=== PATIENT | female | born 1980 | race Caucasian/White ===

== ENCOUNTER → 2016-09-03 | Outpatient (CLI) | payer BC | LOC: MOB LAB 10:04 | PROVIDERS: ATTEND Student in an Organized Health Care Education/Training Program | DX: O20.0 Threatened abortion (principal); Z32.01 Encounter for pregnancy test, result positive | CPT/HCPCS: 36415; 84702; 86900; 86901 ==

== ENCOUNTER → 2016-09-05 | Outpatient (CLI) | payer BC | LOC: LAB 17:14 | PROVIDERS: ATTEND Student in an Organized Health Care Education/Training Program | DX: O20.0 Threatened abortion (principal) | CPT/HCPCS: 36415; 84702 ==

== ENCOUNTER → 2016-09-14 | Outpatient (CLI) | payer BC ==
[2016-09-14 16:27] LABS: HEMOGLOBIN 13.8 g/dL (12.0-16.0); MEAN CORPUSCULAR HEMOGLOBIN 31.9 PG (27-31); MEAN CORPUSCULAR HGB CONC 32.9 g/dL (33-37); MEAN PLATELET VOLUME 8.6 FL (7.4-12.2); RDW COEFFICIENT OF VARIATION 13.5 % (11.5-14.5); RED BLOOD COUNT 4.33 10^6/uL (4.20-5.40); WHITE BLOOD COUNT 8.93 10^3/uL (4.8-10.8)
== END ==
LOC: LAB 16:07
PROVIDERS: ATTEND Student in an Organized Health Care Education/Training Program
DX: O03.9 Complete or unspecified spontaneous abortion without complication (principal); R10.31 Right lower quadrant pain
CPT/HCPCS: 36415; 84702; 85027; 86140

== ENCOUNTER → 2016-10-09 | Outpatient (CLI) | payer BC ==
[2016-10-09 10:11] LABS: HEMATOCRIT 43.8 % (37.0-47.0); HEMOGLOBIN 14.4 g/dL (12.0-16.0); MEAN CORPUSCULAR HEMOGLOBIN 31.4 PG (27-31); MEAN CORPUSCULAR HGB CONC 32.9 g/dL (33-37); MEAN PLATELET VOLUME 9.3 FL (7.4-12.2); RDW COEFFICIENT OF VARIATION 13.5 % (11.5-14.5); RED BLOOD COUNT 4.59 10^6/uL (4.20-5.40); WHITE BLOOD COUNT 6.24 10^3/uL (4.8-10.8)
[2016-10-09 12:37] LABS: BILIRUBIN,URINE NEGATIVE (NEG); CLARITY,URINE CLEAR (CLEAR); GLUCOSE, URINE (UA) NEGATIVE (NEG); LEUKOCYTE ESTERASE ,URINE NEGATIVE (NEG); NITRATE,URINE NEGATIVE (NEG); OCCULT BLOOD,URINE Trace-intact (NEG); PH,URINE 8.5 (5.0-8.5); PROTEIN,URINE NEGATIVE (NEG); UROBILINOGEN,URINE 0.2 mg/dL (0.2)
[2016-10-09 12:41] LABS: URINE SAMPLE TYPE VOIDED SPECIMEN
[2016-10-09 12:42] LABS: BACTERIA,URINE MANY; RBC,URINE 0-1 /hpf; SQUAMOUS EPITHELIAL CELL,UR MANY; WBC,URINE 0-1
--- NOTE | 2016-10-09 13:33 | DI ---
PELVIC ULTRASOUND, 10/09/2016 9:51 AM Clinical History: Right lower quadrant pelvic pain. Previous Exam: None at this facility. Technique: Transabdominal and transvaginal scans are performed. The uterus measures 40 x 50 x 80 mm. The central uterine stripe measures 5 mm. The uterus itself has a normal appearance. The ovaries are normal and demonstrate vascular flow. There is fluid in the cul- de-sac and this is more than typically associated with physiologic amounts. Scans through the right l ower quadrant show no free fluid collection. The appendix is not identified in this area. Readin. There is free fluid in the cul-de-sac and this is more than a physiologic amount. 2. The remainder of the examination is normal. 3. No discrete abnormality is seen in the right lower quadrant. The appendix was not identified.
== END ==
LOC: MOB LAB 09:30
PROVIDERS: ATTEND Student in an Organized Health Care Education/Training Program
DX: R10.2 Pelvic and perineal pain (principal); R10.31 Right lower quadrant pain
CPT/HCPCS: 36415; 76830; 76856; 81001; 84702; 85027

== ENCOUNTER → 2017-02-08 | Outpatient (CLI) | payer BC ==
--- NOTE | 2017-02-09 18:26 | DI ---
CT ABDOMEN SCAN WITH IV CONTRAST, 02/08/2017 9:25 AM : Clinical History: Abdominal pain. Previous Exam: 06/08/2011. Scans are performed from the lower lung bases through the liver and kidneys with IV contrast. 75 ml o f Isovue 300 was injected IV. No oral or rectal contrast was ordered. The lung bases are clear. The liver is normal. The gallbladder is grossly normal. There is no abnorma lity of the spleen, pancreas, and adrenal glands. Both kidneys are normal in size, shape, position an d contour. There is no hydronephrosis or hydroureter. No renal or ureteral calculi are present. There are no abnormal retrocrural or periaortic nodes. No ascites is present. READING: Normal CT abdomen scan. CT PELVIS SCAN WITH IV CONTRAST, 02/08/2017 9:25 AM: Clinical History: See above. Previous Exam: 06/08/2011. Scans are performed from just superior to the umbilicus to the symphysis pubis with IV contrast. This is the same bolus of contrast used for the CT scans of the abdomen. Scans through the lower abdomen and pelvis show no masses or abnormal fluid collections. There is no adenopathy. The appendix is normal. The small bowel, terminal ileum, and ileocecal valve are normal. The colon is also normal. There is a very small umbilical hernia through which only mesenteric fat cortes s herniated. The uterus and both ovaries are normal. READING: Normal CT scan of the pelvis.
== END ==
LOC: CT 08:36
PROVIDERS: ATTEND Nurse Practitioner Family
DX: R10.84 Generalized abdominal pain (principal); R10.33 Periumbilical pain; Z32.02 Encounter for pregnancy test, result negative
CPT/HCPCS: 36415; 74177; 84703

== ENCOUNTER → 2017-03-11 | Outpatient (CLI) | payer BC ==
[2017-03-11 17:08] LABS: BASOPHILS # (AUTO) 0.19 10*3/UL; BASOPHILS % (AUTO) 1.9 % (0-1); EOSINOPHILS # (AUTO) 0.24 10*3/UL; EOSINOPHILS % (AUTO) 2.4 % (0-8); HEMATOCRIT 40.6 % (37.0-47.0); HEMOGLOBIN 13.6 g/dL (12.0-16.0); LYMPHOCYTES # (AUTO) 3.12 10*3/uL; MEAN CORPUSCULAR HEMOGLOBIN 31.9 PG (27-31); MEAN CORPUSCULAR HGB CONC 33.5 g/dL (33-37); MEAN CORPUSCULAR VOLUME 95.1 FL (81-99); MEAN PLATELET VOLUME 9.4 FL (7.4-12.2); MONOCYTES # (AUTO) 0.85 10*3/UL (0.3-0.8); MONOCYTES % (AUTO) 8.6 % (5-15); NEUTROPHILS # (AUTO) 5.49 10*3/UL; NEUTROPHILS % (AUTO) 55.3 % (50-80); RED BLOOD COUNT 4.27 10^6/uL (4.20-5.40)
[2017-03-11 17:10] LABS: PLATELET MORPHOLOGY COMMENT NORMAL MORPHOLOGY (NORM); RBC MORPHOLOGY COMMENT NORMAL MORPHOLOGY (NORM); WBC MORPHOLOGY COMMENT NORMAL MORPHOLOGY (NORM)
[2017-03-11 17:38] LABS: HIV ANTIBODY NEGATIVE (N); HIV-1 P24 ANTIGEN NEGATIVE (N)
[2017-03-11 18:26] LABS: FREE T4 (FREE THYROXINE) 0.74 ng/dL (0.93-1.71)
== END ==
LOC: MOB LAB 14:56
PROVIDERS: ATTEND Student in an Organized Health Care Education/Training Program
DX: O30.001 Twin pregnancy, unspecified number of placenta and unspecified number of amniotic sacs, first trimester (principal); Z36 Encounter for antenatal screening of mother; O09.511 Supervision of elderly primigravida, first trimester
CPT/HCPCS: 36415; 80081; 84439; 84443; 86900; 86901; 87077; 87088; 87186

== ENCOUNTER → 2017-03-18 | Outpatient (CLI) | payer BC ==
--- NOTE | 2017-03-19 10:38 | DI ---
History: Twin gestation in first trimester. Gestational age by last menstrual period is 9 weeks 2 day s Comparison: None Findings: There is a 20, intrauterine gestation. There is a thickened membrane between the 2 amniotic sacs indicating a diamniotic dichorionic pregnan cy. Twin A: Emory-rump length indicates gestational age of 7 weeks 2 days. Heart rate is detected at 172 beats pe r minute. Yolk sac cannot definitely be identified Subjectively, amniotic fluid volume is normal. Twin B: Emory-rump length indicates a gestational age of 7 weeks 2 days. Yolk sac is identified. Subjectively, amniotic fluid volume is normal. Impression Diamniotic, dichorionic intrauterine gestation . Gestational age for both twin A and twin B is 7 weeks 2 days by crown-rump length. REGGIE is November 02, 2017
--- NOTE | 2017-03-19 10:58 | DI ---
History: Early stage of . Gestational age by last menstrual. 8 weeks 2 days Comparison: None Findings: There is a single intrauterine fluid-filled cavity. I do not been provided with beta hCG levels, but there appears to be surrounding decidual reaction, and this is assumed to represent the gestational s ac. The gestational sac is "hourglass" in configuration: Gestational age by sac size is 6 weeks 2 days. Neither pole nor yolk sac is visualized. IVC and the right nor left echogenic or cystic adnexal lesions. There is no free fluid Impression: Intrauterine gestational sac without visualization of a pole or yolk sac. By sac size, gestatio nal age should be 6 weeks 2 days. This could represent a blighted ovum, ectopic , or early i ntrauterine . Reimaging in 2 weeks is recommended for reevaluation.
== END ==
LOC: US 12:46
PROVIDERS: ATTEND Student in an Organized Health Care Education/Training Program
DX: O30.001 Twin pregnancy, unspecified number of placenta and unspecified number of amniotic sacs, first trimester (principal); O09.511 Supervision of elderly primigravida, first trimester
CPT/HCPCS: 76801; 76802

== ENCOUNTER 2017-10-22 09:07 | Inpatient (IN) ==
[2017-10-22] MEDS ORDERED: NORMAL SALINE 10 ML SYRINGE FLUSH IVP PRN ×3 (09:12→14:36)
[2017-10-22 10:01] LABS: BILIRUBIN,URINE NEGATIVE (NEG); COLOR,URINE YELLOW (Y); GLUCOSE, URINE (UA) NEGATIVE (NEG); OCCULT BLOOD,URINE SMALL (NEG); PROTEIN,URINE NEGATIVE (NEG); UROBILINOGEN,URINE 0.2 EU/dL (0.2)
[2017-10-22 10:09] LABS: CLARITY,URINE SLIGHTLY CLOUDY (CLEAR)
[2017-10-22 10:10] LABS: BACTERIA,URINE MANY; URINE SAMPLE TYPE CLEAN CATCH URINE
[2017-10-22] MEDS ORDERED: Lactated Ringers 1,000 ML PRIMARY IV ONE (10:11)
[2017-10-22] MEDS ORDERED: Nalbuphine Inj 20 MG/ML Ampule IVP PRN ×2 (11:08→15:53)
[2017-10-22] MEDS ORDERED: METHYLERGONOVINE MALEATE 0.2 MG/1 ML VIAL IM PRN (11:08)
[2017-10-22] MEDS ORDERED: Metoclopramide Inj 10 MG/2 ML VIAL IV PRN (11:08)
[2017-10-22] MEDS ORDERED: NALOXONE 0.4 MG/1 ML VIAL IVP PRN (11:08)
[2017-10-22] MEDS ORDERED: Lidocaine 1% 10 MG/ML - 20 ML VIAL SUBCUT PRN (11:08)
[2017-10-22] MEDS ORDERED: CITRIC ACID/SODIUM CITRATE 30 ML CUP PO PRN (11:08)
[2017-10-22] MEDS ORDERED: CefOXitin Inj 2 GM in Sodium Chloride 0.9% 100 ML IV PRN (11:08)
[2017-10-22] MEDS ORDERED: MISOPROSTOL 200 MCG TABLET RECTAL PRN (11:08)
[2017-10-22] MEDS ORDERED: LIDOCAINE HCL 2 % 10 ML JELLY URO-JECT TOPICAL PRN (11:08)
[2017-10-22] MEDS ORDERED: Famotidine Inj 20 MG in Normal Saline Flush 10 ML IVP PRN ×5 (11:08→15:53)
[2017-10-22] MEDS ORDERED: Naloxone Inj 0.01 MG in Normal Saline Flush 1 ML IVP PRN (11:08)
[2017-10-22] MEDS ORDERED: BUTORPHANOL TARTRATE 2 MG/1 ML VIAL IVP PRN (11:08)
[2017-10-22] MEDS ORDERED: ONDANSETRON 4 MG/2 ML VIAL IVP PRN ×3 (11:08→15:53)
[2017-10-22] MEDS ORDERED: ePHEDrine Inj 5 MG in Normal Saline Flush 1 ML IVP PRN (11:08)
[2017-10-22] MEDS ORDERED: diphenhydrAMINE 50 MG/1 ML VIAL IVP PRN (11:08)
[2017-10-22] MEDS ORDERED: Phenylephrine Inj 50 MCG in Normal Saline Flush 0.5 ML IVP PRN (11:08)
[2017-10-22] MEDS ORDERED: CALCIUM CARBONATE 500 MG (TUMS) CHEWABLE TABLET PO PRN ×2 (11:08→15:53)
[2017-10-22] MEDS ORDERED: OXYTOCIN 10 UNIT/1 ML IM PRN (11:08)
[2017-10-22] MEDS ORDERED: LIDOCAINE W/ SODIUM BICARB 0.5 ML SYR SUBD PRN ×2 (11:08→14:36)
[2017-10-22] MEDS ORDERED: Carboprost Inj 250 MCG/ML AMP IM PRN (11:08)
[2017-10-22] MEDS ORDERED: TERBUTALINE SULFATE 1 MG/1 ML SDV SUBCUT PRN (11:08)
[2017-10-22] MEDS ORDERED: fentaNYL Inj 100 MCG/2 ML VIAL IV PRN (11:08)
[2017-10-22] MEDS ORDERED: Oxytocin 20 Units + LR 20 UNIT/1,000 ML BAG IV SCH ×2 (11:15→15:53)
[2017-10-22] MEDS ORDERED: Lactated Ringers-OB Dept 1,000 ML PRIMARY IV SCH (11:15)
[2017-10-22] MEDS ORDERED: cefTRIAXone Inj 1 GM in Sodium Chloride 0.9% 100 ML IV SCH (11:15)
--- NOTE | 2017-10-22 11:21 | DI ---
US OB , Limited,10/22/2017 9:13 AM: Clinical History: position Previous Exam: June 20, 2017 Findings: Multiple grayscale and color Doppler sonographic images are obtained through the pelvis, and demonstr ate a single live intrauterine gestation in breech presentation. Amniotic fluid level is at the lower level of normal (5.6 cm). There is normal motion of the limbs an d detected Doppler heart tones of 138 beats per minute. Estimated gestational age was determined by a composite of biparietal diameter, head circumference, a bdominal circumference and femur length yielding an estimated gestational age by ultrasound of 38 wee ks 5 days. Estimated weight is 3567 g (72nd percentile). Impression: A single live intrauterine gestation in breech presentation. Amniotic fluid index at the lower level of normal.
[2017-10-22 11:37] LABS: Hematocrit [HCT] 40.3 % (37.0-47.0); Hemoglobin [HGB] 13.3 g/dL (12.0-16.0); MEAN CORPUSCULAR HEMOGLOBIN 31.3 PG (27-31); MEAN CORPUSCULAR VOLUME 94.8 FL (81-99); MEAN PLATELET VOLUME 9.2 FL (7.4-12.2); RED BLOOD COUNT 4.25 10^6/uL (4.20-5.40)
[2017-10-22] MEDS ORDERED: Sodium Chloride 0.9% 1,000 ML PRIMARY IV SCH (12:15)
[2017-10-22] MEDS ORDERED: FAMOTIDINE 20 MG/2 ML VIAL IVP ONE (12:58)
[2017-10-22] MEDS ORDERED: MORPHINE SULFATE/PF 10 MG/10 ML AMPULE ONE (13:00)
[2017-10-22] MEDS ORDERED: fentaNYL Inj 100 MCG/2 ML VIAL ONE (13:03)
[2017-10-22] MEDS ORDERED: ePHEDrine Inj 50 MG/ML AMP ONE (13:10)
[2017-10-22] MEDS ORDERED: Sodium Chloride 0.9% vial 10 ML ONE (13:11)
[2017-10-22] MEDS ORDERED: CefOXitin Inj 2 GM in Sodium Chloride 0.9% 100 ML IV ONE (13:18)
[2017-10-22] MEDS ORDERED: Cefotaxime Inj 2 GM in Sodium Chloride 0.9% 100 ML IV SCH ×2 (13:30→18:00)
[2017-10-22] MEDS ORDERED: PHENYLEPHRINE 10,000 MCG/1 ML VIAL ONE (13:51)
--- NOTE | 2017-10-22 14:32 | CRNA.PROGR ---
Anesthesia Time - - Start date: 10/22/17 End date: 10/22/17 - Procedure/Recovery Time Anesthesia : Time In: 13:31 Anesthesia : Time Out: 15:13 Anesthesia : Total Time: 102 - Total Anesthesia Time Total Anesthesia Time (minutes): 102 - Other Weight: 96.218 kg Height: 5 ft 9 in Body Mass Index (BMI): 31.3 Physical Status: P2 () Anesthesia Type: Spinal Block Obstetrics: C/S anesthesia only (Breech)
--- NOTE | 2017-10-22 14:34 | CRNA.PROCE ---
Central Neuraxis Block Placevt - - Safety Measures: Time Out Taken, Site Verified - - Type of Block: Subarachnoid Reason for Block: Surgical Moniters Used During Block: SPO2, NIBP Sedation Used - Enter Amount Used in Comment Field: Fentanyl (mcg): Yes (50) Positioning: Sitting Skin Prep Used: ChloroPrep (Times 2) Draped: Yes Skin Infiltration - Enter Amount Used in Comment Field: 1% Xylocaine (mL): Yes ( 1.0) Introducer User: 23 Gauge (1 Pass, Clear CSF. No parasthesia.) Spinal Needle Used: 25 Chantale 80 mm Local Anesthetic - Enter Amount Used in Comment Field: 0.75 % Bupivacaine with Dextrose (ml): Yes (2 ml) Additive Used - Enter Amount Used in Comment Field: Preservative Free Morphine ( mg): Yes (0.15 PF MSO4) Anesthesia Time - Other Weight: 96.218 kg Height: 5 ft 9 in Body Mass Index (BMI): 31.3
--- NOTE | 2017-10-22 14:35 | CRNA.PROGR ---
Anesthesia Recovery Phase I - Post Anesthesia Evaluation Patient's Condition on Arrival in Phase I: Stable Patient's Condition on Arrival in Phase II: Stable Pain Level: 0
[2017-10-22] MEDS ORDERED: Ondansetron ODT Tab 8 MG TAB PO PRN (14:36)
[2017-10-22] MEDS ORDERED: ePHEDrine Inj 50 MG/ML AMP IVP PRN (14:36)
[2017-10-22] MEDS ORDERED: fentaNYL Inj 100 MCG/2 ML VIAL IVP PRN (14:36)
[2017-10-22] MEDS ORDERED: ATROPINE SULFATE 0.4 MG/1 ML VIAL IVP PRN (14:36)
[2017-10-22] MEDS ORDERED: Lactated Ringers 1,000 ML PRIMARY IV SCH (14:45)
[2017-10-22] MEDS ORDERED: Lactated Ringers 2,000 ML PRIMARY IV ONE (15:01)
--- NOTE | 2017-10-22 15:26 | OB.OP.NOTE ---
Operative Report - - Surgeon: Codey Chopra MD Geothermal Technician: Raymundo Pelayo MD Anesthesia Type: Regional Anesthesia Provider: Bree Crenshaw CRNA Surgery Date: 10/23/17 Preoperative Diagnosis: Labor, Breech presentation, borderline oligohydramnios, UTI Postoperative Diagnosis: Same as above. Terma AGA male infant. 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 Workup notable for +leuk esterase and nitrates on urine dip. Patient was given a dose of cefoxitin and fluids. She continued to contract regularly. U/s revealed persistent breech presentation and bordeline oligohydramnios with an NORMAN of 5.8 cm. Given low fluid level, I did not think attempting version at this time was a good idea. Decision was made to proceed with a primary LTCS. As it had been >1 hour since antibiotics, patient was given 2 gms of cefotaxime prior to incision. The patient was taken to the operating room where spinal anesthesia was found to be adequate. She was then prepared and draped in the normal sterile fashion in the dorsal supine position with a leftward tilt. A Pfannenstiel skin incision was then made with the scalpel and carried through to the underlying layer of fascia with Bovie. The fascia was incised in the midline and the incision extended laterally with the Bovie. The superior aspect of the fascial incision was then grasped with Peter clamps, elevated and the underlying rectus muscles dissected off bluntly. Attention was then turned to the inferior aspect of this incision which in a similar fashion was grasped with Peter clamps and the rectus muscles dissected off both bluntly and with the Bovie. The rectus muscle was then in the midline, and the peritoneum identified, tented up, and entered in blunt fashion. The peritoneal incision was then extended superiorly and inferiorly with good visualization of the bladder. The Jaydon retractor was then inserted and the vesicouterine peritoneum was identified, a bladder flap was created. The lower uterine segment incised in the transverse fashion with the scalpel. The uterine incision was then extended laterally blunt fashion. The infant's butt was delivered atraumatically, followed by the L leg and R leg. The L arm and then R arm were then delivered, followed by the head. The nose and mouth were suctioned with the bulb suction. The cord was clamped and cut after approx 30 seconds. The infant was handed off to the awaiting nurse. Cord gases and cord blood were sent for analysis. The placenta was then removed manually; the uterus exteriorized, and cleared of all clots and debris. The uterus was initially quite boggy, but firmed up with pitocin. The uterus was noted to be bicornuate without a septum. The uterine incision was repaired with 0 Vicryl in a running, locked fashion. A second layer of the same suture was used to obtain excellent hemostasis. The peritoneal cavity was then copiously irrigated with warm saline. The uterus was returned to the abdomen. The paracolic gutters were copiously irrigated with warm saline and a second look at the uterus incision continued to reveal excellent hemostasis. The peritoneum was closed with 2-0 Vicryl. The fascia reapproximated with 0 vicryl in a running fashion. The L corner did require a figure of 8 as the fascia did bleed with the initial stitch. The subcutaneous space was irrigated with copiously with warm saline and the closed first with 3- 0 Vicryl and then more superficially with 3-0 stratafix sutures. The skin was reapproximated with Steri-Strips and a Silverlon dressing applied. Fundal massage was completed with small clots in vaginal vault. The patient tolerated the procedure well. Sponge, lap, and needle counts were correct x2. As above Claforan was given preoperatively less than one hour prior to incision time. The patient was taken to the recovery room in stable condition.
[2017-10-22] MEDS ORDERED: Oxytocin 20 Units + LR 20 UNIT/1,000 ML BAG IV ONE (15:29)
[2017-10-22] MEDS ORDERED: diphenhydrAMINE 50 MG/1 ML VIAL IV PRN (15:53)
[2017-10-22] MEDS ORDERED: Naloxone Inj 0.01 MG, Sodium Chloride 0.9% vial 1 ML IVP PRN ×2 (15:53)
[2017-10-22] MEDS ORDERED: diphenhydrAMINE 25 MG CAPSULE PO PRN (15:53)
[2017-10-22] MEDS ORDERED: LANOLIN HPA 40 GM TUBE TOPICAL PRN (15:53)
[2017-10-22] MEDS: KETOROLAC 15 MG/1 ML VIAL IVP SCH ×2 (16:40→22:30)
[2017-10-22] MEDS: NORMAL SALINE 10 ML SYRINGE FLUSH IVP PRN (16:40)
[2017-10-22] MEDS: D5-LR 1,000 ML PRIMARY IV SCH (19:59)
[2017-10-22] MEDS: Cefotaxime Inj 2 GM in Sodium Chloride 0.9% 100 ML IV SCH (21:30)
[2017-10-23] MEDS: KETOROLAC 15 MG/1 ML VIAL IVP SCH ×3 (04:30→16:34)
[2017-10-23] MEDS: D5-LR 1,000 ML PRIMARY IV SCH (04:30)
[2017-10-23] MEDS: Cefotaxime Inj 2 GM in Sodium Chloride 0.9% 100 ML IV SCH (05:24)
[2017-10-23 05:33] LABS: MEAN CORPUSCULAR HEMOGLOBIN 30.8 PG (27-31); MEAN CORPUSCULAR HGB CONC 32.1 g/dL (33-37); MEAN CORPUSCULAR VOLUME 95.9 FL (81-99); MEAN PLATELET VOLUME 9.9 FL (7.4-12.2); RED BLOOD COUNT 2.92 10^6/uL (4.20-5.40)
[2017-10-23] MEDS: Senna/Docusate Tab 1 TAB TAB PO SCH ×2 (08:32→20:43)
[2017-10-23] MEDS: Prenatal Multivitamin Tab 1 TAB TAB PO SCH (08:32)
--- NOTE | 2017-10-23 09:17 | CRNA.PROGR ---
Anesthesia Note - Progress Notes Anesthesia Progress Note: Up in room with OB RN, Dr Chopra, and student nurse present. States she had a comfortable night. Little sleep due to leg pumps. Received Ketoralac for supplemental pain med. Denies a lot of puritis related to Duramorph. Says she has a "little" headache. Denies backache. No nausea. Laboratory Results 10/22/17 10/22/17 10/22/17 Range/Units 09:45 10:47 11:35 WBC 11.56 H (4.8-10.8) 10^3/uL RBC 4.25 (4.20-5.40) 10^6/uL Hgb 13.3 (12.0-16.0) g/dL Hct 40.3 (37.0-47.0) % MCV 94.8 (81-99) FL MCH 31.3 H (27-31) PG MCHC 33.0 (33-37) g/dL RDW Std Deviation 47.8 (39-50) fL RDW Coeff of Adelaida 14.2 (11.5-14.5) % Plt Count 288 (140-350) 10*3/uL MPV 9.2 (7.4-12.2) FL Ur Collection Type Clean catch urine Urine Color Yellow (Y) Urine Clarity Slightly cloudy A (CLEAR) Urine pH 7.0 (5.0-8.5) Ur Specific [place] 1.010 (1.005-1.030) Urine Protein Negative (NEG) mg/dl Urine Glucose (UA) Negative (NEG) mg/dL Urine Ketones Negative (NEG) Urine Occult Blood Small H (NEG) Urine Nitrate Positive A (NEG) Urine Bilirubin Negative (NEG) Urine Urobilinogen 0.2 (0.2) EU/dL Ur Leukocyte Esterase Trace (NEG) Urine RBC 1-3 (NONE) /hpf Urine WBC 1-3 (NONE) Ur Squamous Epith Cells None (NONE) Ur Renal Epithelial Cell None (NONE) Urine Crystals None Urine Bacteria Many H (NONE) Urine Casts None (NONE) Urine Mucus Rare (NONE) Urine Trichomonas None (NONE) Urine Yeast None (NONE) Ur Culture Indicated? Culture set [place] Other Info Negative (NEGATIVE) Blood Type Antibody Screen 10/22/17 10/23/17 Range/Units 11:35 04:34 WBC 11.18 H (4.8-10.8) 10^3/uL RBC 2.92 L (4.20-5.40) 10^6/uL Hgb 9.0 L (12.0-16.0) g/dL Hct 28.0 L (37.0-47.0) % MCV 95.9 (81-99) FL MCH 30.8 (27-31) PG MCHC 32.1 L (33-37) g/dL RDW Std Deviation 46.8 (39-50) fL RDW Coeff of Adelaida 14.0 (11.5-14.5) % Plt Count 232 (140-350) 10*3/uL MPV 9.9 (7.4-12.2) FL Ur Collection Type Urine Color (Y) Urine Clarity (CLEAR) Urine pH (5.0-8.5) Ur Specific [place] (1.005-1.030) Urine Protein (NEG) mg/dl Urine Glucose (UA) (NEG) mg/dL Urine Ketones (NEG) Urine Occult Blood (NEG) Urine Nitrate (NEG) Urine Bilirubin (NEG) Urine Urobilinogen (0.2) EU/dL Ur Leukocyte Esterase (NEG) Urine RBC (NONE) /hpf Urine WBC (NONE) Ur Squamous Epith Cells (NONE) Ur Renal Epithelial Cell (NONE) Urine Crystals Urine Bacteria (NONE) Urine Casts (NONE) Urine Mucus (NONE) Urine Trichomonas (NONE) Urine Yeast (NONE) Ur Culture Indicated? [place] Other Info (NEGATIVE) Blood Type O POSITIVE Antibody Screen Negative Intake and Output (24hr x 4 totals) 10/21/17 10/22/17 10/23/17 10/24/17 05:59 05:59 05:59 05:59 Intake Total 7103 / 7103 100 / 100 Output Total 2150 / 2150 Balance 4953 / 4953 100 / 100 Vital Signs - Last Taken Temperature 98.1 F 10/23/17 05:00 Pulse Rate 69 10/23/17 05:00 Respiratory Rate 18 10/23/17 05:00 Blood Pressure 104/62 10/23/17 05:00 Pulse Ox 99 10/23/17 05:40 No apparent anesthetic difficulties.
[2017-10-23] MEDS: oxyCODONE-ACETAMINOPHEN 5-325 TAB PO PRN ×4 (09:29→20:42)
--- NOTE | 2017-10-23 09:39 | OB.PROGRES ---
Subjective Post Op Day: 1 Pain Management: PO Barreto Catheter: No Flatus: Yes Diet: Regular Feeding Method: Exculsively Ambulating: Yes Concerns / Additional Information: Anxious about taking narcotic pain medications. Did not sleep well 2/2 SCDs. Objective - General General Appearance: POSITIVE: No Acute Distress, Cooperative - Cardiovacular Cardiovascular Exam: POSITIVE: RRR Edema: +1 Pedal Edema Extremities: Negative Darius's - Bilaterally - Respiratory Respiratory Exam: POSITIVE: Clear to Auscultation - Bilaterally, Breathing Non Labored - Abdomen Bowel Sounds: Present Abdominal Wound Assessment: Silverlone Dressing - Fundus/Lochia/Perineum Uterus Consistency: Firm Uterus Position: POSITIVE: At Umbilicus Lochia Color: Rubra/Red Assesstment / Plan (1) delivery delivered Current Visit: Yes Status: Acute Support Text: 37 yo , POD 1 s/p primary LTCS for breech presentation -pain well controlled -breast feeding, will be here today -tolerating a regular diet -Anticipate d/c in 24-48 hours
[2017-10-23] MEDS: NORMAL SALINE 10 ML SYRINGE FLUSH IVP PRN ×2 (10:15→16:34)
[2017-10-23] MEDS: CEPHALEXIN 500 MG CAPSULE PO SCH (20:43)
[2017-10-23] MEDS: IBUPROFEN 800 MG TABLET PO PRN (22:16)
[2017-10-24] MEDS: oxyCODONE-ACETAMINOPHEN 5-325 TAB PO PRN ×3 (02:32→14:11)
[2017-10-24] MEDS: IBUPROFEN 800 MG TABLET PO PRN ×2 (06:28→14:11)
[2017-10-24] MEDS: Prenatal Multivitamin Tab 1 TAB TAB PO SCH (08:36)
[2017-10-24] MEDS: Senna/Docusate Tab 1 TAB TAB PO SCH (08:36)
[2017-10-24] MEDS: CEPHALEXIN 500 MG CAPSULE PO SCH ×2 (08:36→15:17)
[2017-10-24] MEDS ORDERED: FERROUS GLUCONATE 324 MG TABLET PO SCH (09:00)
--- NOTE | 2017-10-24 09:02 | DCSUMMARY ---
Hospitalization Summary Admit Date: 10/22/17 Discharge Date: 10/24/17 Primary Diagnosis:: s/p primary LTCS Secondary Diagnosis:: UTI Postop Anemia Primary Surgery and Date: 10/22/17 Delivery Type: Hospital Course: 37 yo G2 now P1011 presented to L&D with painful contractions on 10/22/17. Urine dip notable for +LE, Nitrates. She was given IVF without resolution of contractions. U/s showed persistent breech presentation with borderline oligohydramnios. Decision made to proceed with primary LTCS for breech presentation, active labor. Patient received a dose of 1g Rocephin with diagnosis of UTI. As decision was made to proceed with , and it had been >1 hours since antibiotic administration (<1 hr recommended per SCIP guidelines) in conjunction with Hamilton Suarez Pharmacist, decision made to give 2gm cefotaxime q8h for preop and UTI treatment starting just prior to incision. Patient and tolerated primary LTCS well. Routine course. / Postop Complications: Post op anemia - asymptomatic. Started on ferrous gluconate Complications: None apparent Exam - Vitals Vital Signs: Vital Signs Temperature 98 F Temperature Source Oral Pulse Rate [Apical] 80 Pulse Rate [Pulse Oximeter] 72 Pulse Rate 77 Respiratory Rate 18 Blood Pressure [Right Arm] 102/67 Blood Pressure [Left Arm] 107/73 Blood Pressure 112/55 Pulse Ox 94 Oxygen Flow Rate 1 Oxygen Delivery Method Room Air Height 5 ft 9 in Weight 212 lb 2 oz - General General Appearance: No Acute Distress - Head Head Exam: Normal Inspection - Eye Eye Exam: POSITIVE: Normal Appearance - Respiratory Respiratory Exam: POSITIVE: Clear to Auscultation - Bilaterally, Breathing Non Labored - Cardiovascular Cardiovascular Exam: POSITIVE: RRR - GI/Abdominal GI/Abdominal Exam: POSITIVE: Normal Bowel Sounds - Extremities Extremities Exam: POSITIVE: No Edema Present. NEGATIVE: Calf Tenderness - Neurological Neurological Exam: POSITIVE: Alert, Oriented x 3 - Psychiatric Psychiatric Exam: POSITIVE: Normal Affect, Normal Mood - Integumentary Integumentary Exam: POSITIVE: Normal Color Additional Integumentary Exam Details: Silverlon dressing in place Patient Problems - Patient Problem List (1) delivery delivered Current Visit: Yes Status: Acute Code(s): O82 - Encounter for delivery without indication Category: Medical (2) Postoperative anemia due to acute blood loss Current Visit: Yes Status: Acute Code(s): D62 - Acute posthemorrhagic anemia Category: Medical (3) UTI (urinary tract infection) Current Visit: No Status: Acute Code(s): N39.0 - Urinary tract infection, site not specified Qualifiers: Urinary tract infection type: acute cystitis Hematuria presence: without hematuria Qualified Code(s): N30.00 - Acute cystitis without hematuria Support Text: 37 yo , POD 2 s/p primary LTCS for breech presentation -post op anemia - ferrous gluconate 324 mg po bid -UTI - culture sensitivities still pending. On day 3 of abx, will complete today and d/c abx. (Keflex po today and last night, received 1 dose of rocephin , then claforin) -pain well controlled - rxs for motrin and percocet sent in -breast feeding, assisting, will refer child for frenotomy -likely POP for pp contraception -continue pnv, synthroid 25mcg po daily -d/c home today, f/u with me in 1 week for wound check Category: Medical
[2017-10-24 09:16] VITALS: BP 119/65; RESP 14; TEMP 97.6; O2SAT 95
--- NOTE | 2017-10-24 09:21 | OB.PROGRES ---
Date and Time of Service: 10/22/17 1100 Interval History: 37 yo at 38 3/7 weeks gestation presented with painful, regular contractions. Upon arrival contractions slowed somewhat. Urine dip and UA concerning for UTI. Patient denied dysuria, frequency, urgency, hematuria. Just contractions, and she was feeling them much lower in her pelvis. U/s completed and notable for persistent breech presentation, NORMAN 5.8cm. Cervical exam notable for increase in dilation from fingertip yesterday to 2 cm. Objective - Cervical Exam Dovray: q3-5 minutes when picking up, some positions did not shrimp picker contractions well Heart Rate Interpretation Category: Category I - Labs CBC and BMP: 10/23/17 04:34 - Vital Signs Last Taken Vital Signs: Vital Signs - Last Taken Temperature 97.6 F 10/24/17 09:00 Pulse Rate 79 10/24/17 09:00 Respiratory Rate 14 10/24/17 09:00 Blood Pressure 119/65 10/24/17 09:00 Pulse Ox 95 10/24/17 09:00 Assessment and Plan - Patient Problems (1) Postoperative anemia due to acute blood loss Current Visit: Yes Status: Acute Code(s): D62 - Acute posthemorrhagic anemia (2) UTI (urinary tract infection) Current Visit: No Status: Acute Code(s): N39.0 - Urinary tract infection, site not specified Qualifiers: Urinary tract infection type: acute cystitis Hematuria presence: without hematuria Qualified Code(s): N30.00 - Acute cystitis without hematuria (3) Oligohydramnios in third trimester Current Visit: No Status: Acute Code(s): O41.03X0 - Oligohydramnios, third trimester, not applicable or unspecified (4) Breech presentation Current Visit: No Status: Acute Code(s): O32.1XX0 - Maternal care for breech presentation, not applicable or unspecified (5) Hypothyroidism affecting Current Visit: No Status: Acute Code(s): O99.280 - Endocrine, nutritional and metabolic diseases complicating , unspecified trimester; E03.9 - Hypothyroidism, unspecified (6) Advanced maternal age (AMA) in Current Visit: No Status: Acute Support Text: Long discussion with patient and her . I think she is in early labor, in setting of UTI. Given low fluid I do not think she is a good candidate for ECV. Will proceed with section. Patient and consented verbally and in written form. All questions answered. Will proceed with .
== END 2017-10-24 16:10 | disposition home or self-care (01) | DRG 765 ==
LOC: OBOP 09:07 → OBIP 11:09
PROVIDERS: ADMIT Student in an Organized Health Care Education/Training Program; ATTEND Student in an Organized Health Care Education/Training Program

== ENCOUNTER 2019-06-29 06:05 | Inpatient (IN) ==
[~2019-06-29 06:05] MED LIST: CITRIC ACID/SODIUM CITRATE 30 ML CUP PO ONE; CefOXitin Inj 2 GM in Sodium Chloride 0.9% 100 ML IV ONE; FAMOTIDINE 20 MG/2 ML VIAL IVP ONE; LIDOCAINE HCL 2 % 10 ML JELLY URO-JECT TOPICAL PRN; LIDOCAINE W/ SODIUM BICARB 0.5 ML SYR SUBD PRN; Lactated Ringers 1,000 ML PRIMARY IV ONE; Metoclopramide Inj 10 MG/2 ML VIAL IV ONE
[2019-06-29] MEDS ORDERED: Lactated Ringers 1,000 ML PRIMARY IV SCH ×2 (06:15→09:45)
[2019-06-29] MEDS ORDERED: Oxytocin 20 Units + LR 20 UNIT/1,000 ML BAG IV SCH ×2 (06:15→10:21)
[2019-06-29 06:44] LABS: Hematocrit [HCT] 37.1 % (37.0-47.0); Hemoglobin [HGB] 12.5 g/dL (12.0-16.0); MEAN CORPUSCULAR HGB CONC 33.7 g/dL (33-37); MEAN CORPUSCULAR VOLUME 95.4 FL (81-99); MEAN PLATELET VOLUME 9.6 FL (7.4-12.2); RED BLOOD COUNT 3.89 10^6/uL (4.20-5.40)
[2019-06-29] MEDS ORDERED: MIDAZOLAM HCL 2 MG/2 ML VIAL ONE ×2 (07:24→07:25)
[2019-06-29] MEDS ORDERED: ONDANSETRON 4 MG/2 ML VIAL ONE (07:26)
[2019-06-29] MEDS ORDERED: OXYTOCIN 10 UNIT/1 ML ONE ×2 (07:31→08:42)
[2019-06-29] MEDS ORDERED: fentaNYL Inj 100 MCG/2 ML VIAL IVP PRN (09:44)
[2019-06-29] MEDS ORDERED: LIDOCAINE W/ SODIUM BICARB 0.5 ML SYR SUBD PRN (09:44)
[2019-06-29] MEDS ORDERED: MORPHINE SULFATE 2 MG/1 ML IVP PRN (09:44)
[2019-06-29] MEDS ORDERED: FAMOTIDINE 20 MG/2 ML VIAL IVP PRN (10:21)
[2019-06-29] MEDS ORDERED: BUTORPHANOL TARTRATE 2 MG/1 ML VIAL IVP PRN (10:21)
[2019-06-29] MEDS ORDERED: LANOLIN HPA 40 GM TUBE TOPICAL PRN (10:21)
[2019-06-29] MEDS ORDERED: ONDANSETRON 4 MG/2 ML VIAL IVP PRN (10:21)
[2019-06-29] MEDS ORDERED: Naloxone Inj 0.01 MG, Sodium Chloride 0.9% vial 1 ML IVP PRN ×2 (10:21)
[2019-06-29] MEDS ORDERED: diphenhydrAMINE 50 MG/1 ML VIAL IV PRN (10:21)
[2019-06-29] MEDS ORDERED: CALCIUM CARBONATE 500 MG (TUMS) CHEWABLE TABLET PO PRN (10:21)
[2019-06-29] MEDS ORDERED: Nalbuphine Inj 20 MG/ML Ampule IVP PRN (10:21)
[2019-06-29] MEDS ORDERED: diphenhydrAMINE 25 MG CAPSULE PO PRN (10:21)
[2019-06-29] MEDS: D5-LR 1,000 ML PRIMARY IV SCH ×2 (10:30→19:31)
[2019-06-29] MEDS: KETOROLAC 15 MG/1 ML VIAL IVP SCH ×3 (11:06→23:11)
[2019-06-29] MEDS: oxyCODONE-ACETAMINOPHEN 5-325 TAB PO PRN ×3 (13:11→20:49)
[2019-06-30] MEDS: oxyCODONE-ACETAMINOPHEN 5-325 TAB PO PRN ×4 (00:29→20:23)
[2019-06-30] MEDS: KETOROLAC 15 MG/1 ML VIAL IVP SCH ×2 (04:54→10:58)
[2019-06-30 05:14] LABS: Hematocrit [HCT] 32.8 % (37.0-47.0); Hemoglobin [HGB] 10.8 g/dL (12.0-16.0); MEAN CORPUSCULAR HGB CONC 32.9 g/dL (33-37); MEAN CORPUSCULAR VOLUME 96.8 FL (81-99); MEAN PLATELET VOLUME 9.5 FL (7.4-12.2); RED BLOOD COUNT 3.39 10^6/uL (4.20-5.40)
[2019-06-30] MEDS: Prenatal Multivitamin Tab 1 TAB TAB PO SCH (09:41)
[2019-06-30] MEDS: Senna/Docusate Tab 1 TAB TAB PO SCH (09:41)
[2019-06-30] MEDS: IBUPROFEN 800 MG TABLET PO SCH (16:36)
[2019-06-30 22:33] VITALS: RESP 16
[2019-07-01] MEDS: Senna/Docusate Tab 1 TAB TAB PO SCH ×2 (04:40→10:06)
[2019-07-01] MEDS: IBUPROFEN 800 MG TABLET PO SCH (04:42)
[2019-07-01 04:50] VITALS: BP 122/76; TEMP 98; O2SAT 98
[2019-07-01] MEDS: Prenatal Multivitamin Tab 1 TAB TAB PO SCH (10:06)
[2019-07-01] MEDS: oxyCODONE-ACETAMINOPHEN 5-325 TAB PO PRN (10:06)
== END 2019-07-01 12:30 | disposition home or self-care (01) | DRG 788 ==
LOC: OBOR 06:05 → OBIP 09:42
PROVIDERS: ADMIT Student in an Organized Health Care Education/Training Program; ATTEND Student in an Organized Health Care Education/Training Program